=== PATIENT | male | born 1970 | race Two or more races ===

== ENCOUNTER 2020-02-23 11:44 | Inpatient (IN) | payer MEDICAID, OTHER ==
[~2020-02-23] VITALS: Ht 172.7 cm; Wt 91.2 kg
[2020-02-23] MEDS ORDERED: SODIUM CHLORIDE 0.9% 1,000 ML IV SCH (12:15)
[2020-02-23] MEDS ORDERED: FAMOTIDINE (10MG/ML) 2ML VL IV ONE (12:30)
[2020-02-23] MEDS ORDERED: ONDANSETRON ODT 4 MG TAB PO ONE (12:30)
[2020-02-23] MEDS ORDERED: SODIUM CHLORIDE 0.9% 1,000 ML IV ONE (12:30)
[2020-02-23] MEDS ORDERED: AZITHROMYCIN 500MG/ 250ML 250 ML IV ONE (13:00)
[2020-02-23] MEDS ORDERED: cefTRIAXone SOD 1,000 MG VL IM ONE (13:00)
[2020-02-23 13:14] LABS: Basophils # (auto) 0 10 ^3/uL (0-0.2); Basophils % (auto) 0.2 % (0.0-2.0); Eosinophils # (auto) 0 10 ^3/uL (0-0.8); Eosinophils % (auto) 0.2 % (0.0-7.0); Hematocrit 41.3 % (41.0-53.0); Hemoglobin 14.6 g/dL (13.5-17.5); Lymphocytes # (auto) 0.8 10 ^3/uL (0.4-5.4); Lymphocytes % (auto) 10.2 % (10.0-50.0); Mean Corpuscular Hemoglobin 32.1 pg (28.0-32.0); Mean Corpuscular Hgb Conc. 35.4 g/dL (32.0-36.0); Mean Corpuscular Volume 90.7 fL (80.0-100.0); Monocytes # (auto) 0.8 10 ^3/uL (0-1.3); Monocytes % (auto) 10.5 % (0.0-12.0); Neutrophils # (auto) 6.1 10 ^3/uL (1.6-8.6); Neutrophils % (auto) 78.9 % (37.0-80.0); Platelet Count (auto) 323 10^3/uL (140-450); Red Blood Cells 4.56 10^6/uL (4.5-5.90); White Blood Cell 7.7 10^3/uL (4.4-10.8)
[2020-02-23] MEDS ORDERED: cefTRIAXone 1GM/50ML D5W 50 ML IV ONE (13:22)
[2020-02-23 13:29] LABS: Alanine Aminotransferase 43 U/L (16-61); Albumin 2.8 g/dL (3.4-5.0); Anion Gap 10 (5-15); Aspartate Aminotransferase 27 U/L (15-37); BUN/Creatinine Ratio 12.9; Blood Urea Nitrogen 12 mg/dL (7-18); Calcium 8.7 mg/dL (8.5-10.1); Carbon Dioxide 25 mmol/L (21-32); Chloride 101 mmol/L (98-107); GFR African American 112 mL/min; GFR Non-African American 93 mL/min; Glucose 164 mg/dL (74-106); Lipase 193 U/L (73-393); Magnesium 2.1 mg/dL (1.6-2.6); Potassium 3.5 mmol/L (3.5-5.1); Sodium 136 mmol/L (136-145)
[2020-02-23 13:34] LABS: Alkaline Phosphatase 92 U/L (45-117); Bilirubin, Total 1.2 mg/dL (0.2-1.0); Total Protein 8.8 g/dL (6.4-8.2)
[2020-02-23] MEDS: SODIUM CHLOR 0.9% PF (SALINE LOCK) 10ML VIAL/SYR IV SCH ×2 (14:11→21:38)
[2020-02-23] MEDS ORDERED: MORPHINE SULF INJ 2 MG/ML SYRINGE 1ML IV PRN ×2 (14:45)
[2020-02-23] MEDS ORDERED: HYDROcodone-ACET 5/325MG TAB PO PRN (14:45)
[2020-02-23] MEDS ORDERED: ACETAMINOPHEN 500 MG TAB PO PRN (14:45)
[2020-02-23] MEDS ORDERED: REMDESIVIR PER PHARMACY IV SCH (14:45)
[2020-02-23] MEDS ORDERED: ONDANSETRON HCL 4 MG/2 ML VIAL IV PRN (14:45)
[2020-02-23] MEDS ORDERED: NITROGLYCERIN 0.4 MG SL TAB SL PRN (14:45)
[2020-02-23] MEDS ORDERED: IOHEXOL 350 MG/ML 100ML IJ ONE (14:53)
[2020-02-23] MEDS: SODIUM CHLORIDE 0.9% 1,000 ML IV SCH (14:57)
[2020-02-23] MEDS ORDERED: METOPROLOL SUCCINATE XL 50 MG TAB PO ONE (15:00)
[2020-02-23 15:23] LABS: Cholesterol 165 mg/dL (< 200)
[2020-02-23 15:26] LABS: HDL Cholesterol 25 mg/dL (40-59); LDL Cholesterol 102 mg/dL (< 100); Triglycerides 108 mg/dL (< 150)
[2020-02-23] MEDS ORDERED: GUAI600T23 PO (15:28)
[2020-02-23] MEDS ORDERED: ASCO1TAB27 PO (15:28)
[2020-02-23 15:29] LABS: CRP High Sensitivity 17.6 mg/dL (< 0.3)
[2020-02-23] MEDS ORDERED: ENOXAPARIN SOD 40 MG/0.4 ML SYRINGE SC ONE (19:00)
[2020-02-23] MEDS ORDERED: VANCOMYCIN PER PHARMACY 0 MG IV SCH (19:00)
[2020-02-23] MEDS ORDERED: PIPERACILLIN-TAZOB 3.375GM 100 ML IV ONE ×2 (19:00)
[2020-02-23 19:04] LABS: Lactic Acid w/Reflex 2.1 mmol/L (0.4-2.0)
[2020-02-23] MEDS ORDERED: VANCOMYCIN 1GM/250ML 250 ML IV SCH (20:00)
[2020-02-23] MEDS: ENOXAPARIN SOD 100 MG/1 ML SYRINGE SC SCH (21:38)
[2020-02-23] MEDS: ATORVASTATIN 20 MG TAB PO SCH (21:38)
[2020-02-23] MEDS: FAMOTIDINE (10MG/ML) 2ML VL IV SCH (21:38)
[2020-02-23] MEDS ORDERED: ENOXAPARIN SOD 40 MG/0.4 ML SYRINGE SC SCH (22:00)
[2020-02-23] MEDS: BUDESONIDE (INHALATION) 180 MCG IH IN SCH (22:00)
[2020-02-23] MEDS ORDERED: DOXYCYCLINE 100MG/250ML 250 ML IV SCH (22:00)
[2020-02-23] MEDS ORDERED: REMDESIVIR 200 MG in NS 210ml LOADING DOSE ADULT IV ONE (23:15)
--- NOTE | 2020-02-23 23:38 | NUR ---
Telemetry admit from [facility] admitted to Telemetry unit after SBAR received. Patient oriented to ELLIOTT GARCIA, RN primary RN, unit, room, bed, and unit policies regarding patient care and visiting hours. Patient now on continuous telemetry monitoring, tele box # 48 and telemetry reading on arrival to unit is 86. Patient placed on bedside oxygen 2L via nasal cannula, weighed by bedscale and encouraged to call if they need something. All questions and concerns addressed, patient verbalized understanding. Will continue to monitor.
[2020-02-23 23:50] VITALS: BP 136/82
[2020-02-24] MEDS ORDERED: PIPERACILLIN-TAZOB 3.375GM 100 ML IV SCH
--- NOTE | 2020-02-24 00:43 | NUR ---
Remdesivir Infusion Remdesivir consent signed and placed in chart. Explained medication and side effects to patient, patient verbalized understanding. Patient's vital signs before infusion: 98.3, 135/88, HR 85, O2 96, RR 20. Patient's vital signs 15 minutes after infusion: 98.2, 141/88, HR 84, O2 97, RR 19. Patient denies any symptoms. No signs of distress noted. Will continue to monitor.
--- NOTE | 2020-02-24 01:42 | NUR ---
Remdesivir Infusion Complete Patient's vital signs after infusion: 98.2, 145/88, HR 84, O2 97, RR 19. Patient denies any symptoms. No signs of distress noted. Will continue to monitor.
[2020-02-24] MEDS: PIPERACILLIN-TAZOB 3.375GM 100 ML IV SCH ×2 (02:42→09:38)
[2020-02-24 05:00] VITALS: BP 139/85
[2020-02-24 05:49] LABS: Urine Bacteria NONE SEEN /hpf (None Seen); Urine Blood Negative /uL (Negative); Urine Mucus FEW (None Seen); Urine WBC 3 /hpf (0 - 3)
[2020-02-24] MEDS: VANCOMYCIN 1GM/250ML 250 ML IV SCH ×2 (06:06→13:53)
[2020-02-24] MEDS: FUROSEMIDE 20 MG/2 ML VIAL IV SCH ×2 (06:07→18:38)
[2020-02-24] MEDS: SODIUM CHLOR 0.9% PF (SALINE LOCK) 10ML VIAL/SYR IV SCH ×3 (06:07→21:54)
[2020-02-24] MEDS: SODIUM CHLORIDE 0.9% 1,000 ML IV SCH (06:07)
[2020-02-24 07:42] LABS: Basophils # (auto) 0 10 ^3/uL (0-0.2); Basophils % (auto) 0.2 % (0.0-2.0); Eosinophils # (auto) 0.2 10 ^3/uL (0-0.8); Hematocrit 40.5 % (41.0-53.0); Hemoglobin 14.1 g/dL (13.5-17.5); Lymphocytes # (auto) 1.6 10 ^3/uL (0.4-5.4); Lymphocytes % (auto) 20.3 % (10.0-50.0); Mean Corpuscular Hemoglobin 31.7 pg (28.0-32.0); Mean Corpuscular Hgb Conc. 34.8 g/dL (32.0-36.0); Mean Corpuscular Volume 91.2 fL (80.0-100.0); Monocytes # (auto) 0.9 10 ^3/uL (0-1.3); Monocytes % (auto) 11.4 % (0.0-12.0); Neutrophils # (auto) 5.1 10 ^3/uL (1.6-8.6); Neutrophils % (auto) 66.1 % (37.0-80.0); Platelet Count (auto) 331 10^3/uL (140-450); Red Blood Cells 4.45 10^6/uL (4.5-5.90); Red Cell Distribution Width 12.2 % (11.8-14.3); White Blood Cell 7.8 10^3/uL (4.4-10.8)
[2020-02-24] MEDS: BUDESONIDE (INHALATION) 180 MCG IH IN SCH ×2 (07:57→22:00)
[2020-02-24 08:00] VITALS: BP 133/75
[2020-02-24 08:06] LABS: Albumin 2.8 g/dL (3.4-5.0); Calcium 8.5 mg/dL (8.5-10.1); Potassium 3.1 mmol/L (3.5-5.1)
[2020-02-24 08:08] LABS: BUN/Creatinine Ratio 12.5
[2020-02-24 08:11] LABS: Total Protein 8.4 g/dL (6.4-8.2)
[2020-02-24 08:31] VITALS: BP 133/75
[2020-02-24 09:21] LABS: Alcohol, Urine < 3.0 mg/dL (0-10); Amphetamine Screen, Urine NEGATIVE (NEGATIVE); Barbiturate Scree,Urine NEGATIVE (NEGATIVE); Benzodiazephine Screen, Urine NEGATIVE (NEGATIVE); Cannabinoid Screen, Urine NEGATIVE (NEGATIVE); Cocaine Screen, Urine NEGATIVE (NEGATIVE); Opiate Scree,Urine NEGATIVE (NEGATIVE); Phencyclidine Screen, Urine NEGATIVE (NEGATIVE)
[2020-02-24] MEDS: DexAMETHasone SOD PHOS 10MG/1ML VIAL INJ IV SCH (09:38)
[2020-02-24] MEDS: FAMOTIDINE (10MG/ML) 2ML VL IV SCH ×2 (09:39→21:53)
[2020-02-24] MEDS: ASPirin 81 mg TAB PO SCH (09:39)
[2020-02-24] MEDS: ZINC SULFATE 220mg CAP or TAB PO SCH (09:39)
[2020-02-24] MEDS: METOPROLOL SUCCINATE XL 50 MG TAB PO SCH (09:49)
[2020-02-24] MEDS: CHOLECALCIFEROL (VITD3) 2,000 UNIT CAP PO SCH (09:49)
[2020-02-24] MEDS: ASCORBIC ACID 1,000 MG TAB PO SCH (09:49)
[2020-02-24] MEDS: ENOXAPARIN SOD 100 MG/1 ML SYRINGE SC SCH ×2 (10:00→21:54)
[2020-02-24] MEDS ORDERED: ASPirin 325 MG TAB PO SCH (10:00)
--- NOTE | 2020-02-24 11:34 | NUR ---
Nutrition consult/assessment Notes please see attached link for complete assessment Est Energy needs ABW 81 [id number] kcals (23-25kcal/kgABW), Est Protein needs: 81-89 gms/day (1.0-1.1 gm/kgABW). Will continue to monitor and reassess prn.. Addendum: 02/24/20 at [address] Amended: Links added.
--- NOTE | 2020-02-24 11:50 | NUR ---
Dr Membreno bedside with patient discussing plan of care. MD informed of patients K+ of 3.1. Order received for potassium and carried out
[2020-02-24] MEDS ORDERED: POTASSIUM CHL 20 Meq TABLET PO ONE (12:00)
[2020-02-24 12:22] VITALS: BP 132/84
[2020-02-24] MEDS ORDERED: AZITHROMYCIN 250 MG TAB PO ONE (14:30)
[2020-02-24 16:48] VITALS: BP 132/77
[2020-02-24] MEDS: ALBUTEROL SULF HFA 90MCG INH 200DOSE IN PRN (17:08)
[2020-02-24] MEDS: REMDESIVIR 100 MG in SODIUM CHL 0.9% 250 ML IV SCH (17:19)
--- NOTE | 2020-02-24 17:51 | NUR ---
REMDESIVIR preremdesivir VS: 99.1, 82, 18, 93%, 132/77 15 minute VS: 98.5, 86, 20, 95%, 142/80 Addendum: 02/24/20 at 1834 by CATRACHITA LEE RN RN Remdesivir started at [id number]
--- NOTE | 2020-02-24 18:32 | NUR ---
POST REMDESIVIR 99.0, 82, 18RR, 96%, 123/83
--- NOTE | 2020-02-24 19:34 | NUR ---
Opening Shift Note Received report and assumed care of patient. Patient is awake and alert. No signs or symptoms of distress noted. Instructed patient on plan of care and to call for assistance as needed. Will continue to monitor. Note: Patient's vital signs: 98.1,HR 85, BP 111/70, RR 18 O2 92 on Room Air.
--- NOTE | 2020-02-24 20:34 | NUR ---
MDI AND DPI NOT ADMINISTER. NO MDI OR DPI AT BEDSIDE.
[2020-02-24] MEDS: ATORVASTATIN 20 MG TAB PO SCH (21:53)
[2020-02-24 22:00] VITALS: BP 122/79
[2020-02-25 05:00] VITALS: BP 120/88
[2020-02-25] MEDS: SODIUM CHLOR 0.9% PF (SALINE LOCK) 10ML VIAL/SYR IV SCH ×3 (05:56→21:46)
[2020-02-25] MEDS: FUROSEMIDE 20 MG/2 ML VIAL IV SCH ×2 (05:56→17:44)
[2020-02-25 07:27] LABS: Potassium 3.7 mmol/L (3.5-5.1)
--- NOTE | 2020-02-25 07:30 | NUR ---
Opening Shift Note RECEIVED REPORT FROM NOC RN. Assumed care of patient, awake and alert. No S/S of distress/SOB or pain. BED IN LOWEST, LOCKED POSITION WITH SIDERAILS UP x2 AND CALL LIGHT WITHIN REACH. Instructed on POC and to call for assist PRN, will continue to monitor for changes Q1hr and PRN.
[2020-02-25 07:36] LABS: Albumin 2.9 g/dL (3.4-5.0); BUN/Creatinine Ratio 14.9; Bilirubin, Total 0.7 mg/dL (0.2-1.0); Calcium 9.4 mg/dL (8.5-10.1); Total Protein 9.1 g/dL (6.4-8.2)
[2020-02-25] MEDS: BUDESONIDE (INHALATION) 180 MCG IH IN SCH ×3 (08:50→22:00)
[2020-02-25 09:00] VITALS: BP 105/78
[2020-02-25] MEDS: DexAMETHasone SOD PHOS 10MG/1ML VIAL INJ IV SCH (10:52)
[2020-02-25] MEDS: ASPirin 81 mg TAB PO SCH (10:52)
[2020-02-25] MEDS: ZINC SULFATE 220mg CAP or TAB PO SCH (10:52)
[2020-02-25] MEDS: FAMOTIDINE (10MG/ML) 2ML VL IV SCH ×2 (10:52→21:44)
[2020-02-25] MEDS: ASCORBIC ACID 1,000 MG TAB PO SCH (10:53)
[2020-02-25] MEDS: CHOLECALCIFEROL (VITD3) 2,000 UNIT CAP PO SCH (10:53)
[2020-02-25] MEDS: AZITHROMYCIN 250 MG TAB PO SCH (10:53)
[2020-02-25] MEDS: ENOXAPARIN SOD 100 MG/1 ML SYRINGE SC SCH ×3 (10:53→21:45)
[2020-02-25] MEDS: METOPROLOL SUCCINATE XL 50 MG TAB PO SCH (10:53)
[2020-02-25 13:00] VITALS: BP 139/82
[2020-02-25 17:00] VITALS: BP 124/86
[2020-02-25] MEDS: REMDESIVIR 100 MG in SODIUM CHL 0.9% 250 ML IV SCH (17:01)
--- NOTE | 2020-02-25 19:57 | NUR ---
Opening Shift Note Received report and assumed care of patient. Patient is awake and alert. No signs or symptoms of distress noted. Instructed patient on plan of care and to call for assistance as needed. Will continue to monitor.
[2020-02-25] MEDS: ATORVASTATIN 20 MG TAB PO SCH (21:44)
[2020-02-25 22:00] VITALS: BP 125/85
[2020-02-25] MEDS: ALBUTEROL SULF HFA 90MCG INH 200DOSE IN PRN (22:32)
[2020-02-26 05:00] VITALS: BP 110/85
[2020-02-26] MEDS: SODIUM CHLOR 0.9% PF (SALINE LOCK) 10ML VIAL/SYR IV SCH ×3 (06:04→21:46)
[2020-02-26] MEDS: FUROSEMIDE 20 MG/2 ML VIAL IV SCH ×2 (06:05→18:00)
[2020-02-26 07:20] LABS: Albumin 2.8 g/dL (3.4-5.0); Calcium 9.1 mg/dL (8.5-10.1); Potassium 4.1 mmol/L (3.5-5.1)
[2020-02-26 07:24] LABS: BUN/Creatinine Ratio 20.6; Bilirubin, Total 0.6 mg/dL (0.2-1.0); Total Protein 8.3 g/dL (6.4-8.2)
[2020-02-26] MEDS: BUDESONIDE (INHALATION) 180 MCG IH IN SCH ×2 (07:25→22:00)
--- NOTE | 2020-02-26 07:30 | NUR ---
Opening Shift Note Assumed care of patient, awake and alert. No S/S of distress/SOB or pain. Instructed on POC and to call for assist PRN, will continue to monitor for changes Q1hr and PRN. Fall precautions in place per safety protocol.
[2020-02-26 09:06] VITALS: BP 116/76
[2020-02-26] MEDS: DexAMETHasone SOD PHOS 10MG/1ML VIAL INJ IV SCH (11:16)
[2020-02-26] MEDS: METOPROLOL SUCCINATE XL 50 MG TAB PO SCH (11:17)
[2020-02-26] MEDS: ASCORBIC ACID 1,000 MG TAB PO SCH (11:17)
[2020-02-26] MEDS: ZINC SULFATE 220mg CAP or TAB PO SCH (11:17)
[2020-02-26] MEDS: ASPirin 81 mg TAB PO SCH (11:17)
[2020-02-26] MEDS: FAMOTIDINE (10MG/ML) 2ML VL IV SCH ×2 (11:17→21:45)
[2020-02-26] MEDS: AZITHROMYCIN 250 MG TAB PO SCH (11:18)
[2020-02-26] MEDS: CHOLECALCIFEROL (VITD3) 2,000 UNIT CAP PO SCH (11:18)
[2020-02-26] MEDS: ENOXAPARIN SOD 100 MG/1 ML SYRINGE SC SCH ×2 (11:18→21:46)
[2020-02-26 13:00] VITALS: BP 139/89
--- NOTE | 2020-02-26 14:03 | NUR ---
Consultation Patient has no insurance, SW refer patient to Karin Cruz [phone], Karin stated that will speak with patient to address insurance issue.
[2020-02-26 17:00] VITALS: BP 139/98
[2020-02-26] MEDS: REMDESIVIR 100 MG in SODIUM CHL 0.9% 250 ML IV SCH (18:32)
--- NOTE | 2020-02-26 18:57 | NUR ---
REMDESIVIR PRE-INFUSION BP:139/91 HR:90 15 MIN POST-INFUSION BP:138/81 HR:85
--- NOTE | 2020-02-26 20:32 | NUR ---
REMDESIVIR POST INFUSION BP 131/83 HR 76 O2 92% PATIENT TOLERATED WELL. WILL CONTINUE TO MONITOR
--- NOTE | 2020-02-26 20:50 | NUR ---
IV removal IV DC'd with clean sterile technique, catheter fully intact. Pressure dressing applied to site. Patient tolerated well.
--- NOTE | 2020-02-26 21:45 | NUR ---
IV insertion IV access obtained, via clean sterile technique by inserting 22 gauge catheter at right hand after 2 attempt(s). IV secured properly. No trauma to site. Patient tolerated well.
[2020-02-26] MEDS: ATORVASTATIN 20 MG TAB PO SCH (21:46)
[2020-02-26 22:00] VITALS: BP 126/84
--- NOTE | 2020-02-26 22:06 | NUR ---
PT CURRENTLY STABLE ON ROOM AIR WITH AN SPO2 OF 96%. MDI AND DPI AT BEDSIDE AND PT REFUSED TX AT THIS TIME. WILL CONTINUE TO MONITOR.
[2020-02-27 05:00] VITALS: BP 120/91
[2020-02-27] MEDS: SODIUM CHLOR 0.9% PF (SALINE LOCK) 10ML VIAL/SYR IV SCH ×2 (05:34→14:00)
[2020-02-27 08:18] LABS: Basophils # (auto) 0 10 ^3/uL (0-0.2); Eosinophils # (auto) 0 10 ^3/uL (0-0.8); Eosinophils % (auto) 0.2 % (0.0-7.0); Lymphocytes # (auto) 2.1 10 ^3/uL (0.4-5.4); Mean Corpuscular Hemoglobin 31.7 pg (28.0-32.0); Mean Corpuscular Hgb Conc. 34.4 g/dL (32.0-36.0); Mean Corpuscular Volume 92.2 fL (80.0-100.0); Monocytes # (auto) 0.9 10 ^3/uL (0-1.3); Neutrophils # (auto) 6.4 10 ^3/uL (1.6-8.6); Neutrophils % (auto) 67.9 % (37.0-80.0); Nucleated Red Blood Cells % 0.1 %; Red Cell Distribution Width 12.2 % (11.8-14.3)
[2020-02-27] MEDS: ALBUTEROL SULF HFA 90MCG INH 200DOSE IN PRN (08:18)
[2020-02-27] MEDS: BUDESONIDE (INHALATION) 180 MCG IH IN SCH ×2 (08:18→08:56)
[2020-02-27 08:21] LABS: Basophils % (auto) 0.1 % (0.0-2.0); Hematocrit 43.6 % (41.0-53.0); Monocytes % (auto) 9.8 % (0.0-12.0); Red Blood Cells 4.73 10^6/uL (4.5-5.90); White Blood Cell 9.5 10^3/uL (4.4-10.8)
[2020-02-27 08:44] LABS: Potassium 4.2 mmol/L (3.5-5.1)
[2020-02-27 08:54] LABS: Albumin 2.9 g/dL (3.4-5.0); BUN/Creatinine Ratio 18.8; Bilirubin, Total 0.5 mg/dL (0.2-1.0); Calcium 9.1 mg/dL (8.5-10.1)
--- NOTE | 2020-02-27 08:57 | NUR ---
Respiratory note: PT IS AWAKE, AND ALERT. NO RESPIRATORY DISTRESS NOTED. PT REFUSED MDI ALBUTEROL, AND PULMICORT DPI. RN AWARE. SPO2 94% ON RA, HR 77, RR 18, BS CLEAR/DIMINISHED BILATERALLY. WILL CONTINUE TO MONITOR PT. CHARTING COMPLETE FROM OUTSIDE OF PT ROOM PER COVID-19 PRECAUTIONS/PROTOCOL.
[2020-02-27 09:00] VITALS: BP 137/87
[2020-02-27 09:03] LABS: Platelet Count (auto) 464 10^3/uL (140-450)
[2020-02-27] MEDS: ZINC SULFATE 220mg CAP or TAB PO SCH (09:42)
[2020-02-27] MEDS: DexAMETHasone SOD PHOS 10MG/1ML VIAL INJ IV SCH (09:42)
[2020-02-27] MEDS: FAMOTIDINE (10MG/ML) 2ML VL IV SCH (09:42)
[2020-02-27] MEDS: ASPirin 81 mg TAB PO SCH (09:42)
[2020-02-27] MEDS: CHOLECALCIFEROL (VITD3) 2,000 UNIT CAP PO SCH (09:43)
[2020-02-27] MEDS: AZITHROMYCIN 250 MG TAB PO SCH (09:43)
[2020-02-27] MEDS: METOPROLOL SUCCINATE XL 50 MG TAB PO SCH (09:43)
[2020-02-27] MEDS: ASCORBIC ACID 1,000 MG TAB PO SCH (09:43)
[2020-02-27] MEDS: ENOXAPARIN SOD 100 MG/1 ML SYRINGE SC SCH (09:52)
--- NOTE | 2020-02-27 11:47 | NUR ---
Hospitalist MD Membreno at bedside, aware of patient status. Per MD, he will place DC orders for today. Patient may be discharged after Remdesivir is given.
[2020-02-27 13:00] VITALS: BP 117/74
--- NOTE | 2020-02-27 15:04 | NUR ---
Nutrition Followup Notes Pt wt is 91.2 kg Pt is positive for COVID, in isolation. Pt is with a Regular diet, appetite is good aeb ave 97% x3 PO intake per RN doc. Per notes, pt is with no s/s of distress or pain. Est Energy needs ABW 81 [id number] kcals (23-25kcal/kgABW), Est Protein needs: 81-89 gms/day (1.0-1.1 gm/kgABW). Will continue to monitor and reassess prn. LABS: BUN 19 H, GLUC 212 H, ALB 2.9 L GI: Pt had 2 BMs on 02/25 per RN doc BS: 20 low risk. Refer to wound assessment report for further details PES: 1) Altered nutrition related lab values r.t current chronic medical condition aeb mod hypoalb, hyperglycemia 2) Decreased nutrient needs r.t adiposity aeb pt`s high BMI of 30.8 kgm2 Comments Will continue to monitor PO status, skin status, pertinent labs and weight trends. Will f/u in 3-5 days 1) refer to [facility] dietitian on DC 2) consider low lactose diet for diarrhea 3) continue current plan of care
[2020-02-27] MEDS: REMDESIVIR 100 MG in SODIUM CHL 0.9% 250 ML IV SCH (15:57)
--- NOTE | 2020-02-27 16:30 | NUR ---
REMDESIVIR PRE-INFUSION BP:127/83 HR:70 15 MIN POST-INFUSION BP:116/74 HR:67
--- NOTE | 2020-02-27 16:39 | NUR ---
O2 Patient titrated to 5L NC with O2 saturations of 92-95%. Will cont to monitor patient. Addendum: 02/27/20 at 1818 by RIA EUBANKS RN RN WRONG PATIENT
[2020-02-27 17:00] VITALS: BP 127/83
--- NOTE | 2020-02-27 17:10 | NUR ---
REMDESIVIR POST-TRANSFUSION BP:131/81 HR:64
[2020-02-27 19:44] VITALS: BP 127/83
--- NOTE | 2020-02-27 20:54 | NUR ---
PATIENT DISCHARGED PER ORDERS, WITH ALL PERSONAL BELONGINGS. TELE BOX REMOVED AND SENT TO PIPE TESTING TECHNICIAN. IV ACCESS REMOVED WITH CLEAN STERILE TECHNIQUE.
== END 2020-02-27 20:47 | disposition home or self-care (01) | DRG 137 ==
LOC: ER 11:44 → TELE 11:45 → TELE-EAST 23:34
PROVIDERS: ADMIT Hospitalist; ATTEND Internal Medicine
PROC: XW033E5 Introduction of Remdesivir Anti-infective into Peripheral Vein, Percutaneous Approach, New Technology Group 5 (ICD-10-PCS; principal; 2020-02-23)
DX: U07.1 COVID-19 (principal); J12.89 Other viral pneumonia; E87.6 Hypokalemia; R73.03 Prediabetes; E44.0 Moderate protein-calorie malnutrition; E66.9 Obesity, unspecified; Z68.30 Body mass index [BMI] 30.0-30.9, adult; E78.5 Hyperlipidemia, unspecified; R79.89 Other specified abnormal findings of blood chemistry
CPT/HCPCS: 36415; 71045; 71275; 76705; 80053; 80061; 80307; 81001; 82306; 82728; 83036; 83605; 83615; 83690; 83735; 84443; 84484; 85025; 85379; 86141; 87040; 87086; 87426; 87804; 93005; 94640; 96361; 96365; 96372; 96375; G0378; J0696; J1100; J2543; J3490; Q0162